=== PATIENT | male | born 1945 | race Caucasian/White ===

== ENCOUNTER → 2018-01-05 | Outpatient (CLI) | payer OTHER ==
[~2018-01-05] MED LIST: AMLO1CAP12 PO; CARB1TAB20 PO; CARB1TAB43 PO; LORA1TAB PO; METO50TA82 PO; SERT50TA5 PO; SIMV20TA3 PO; ZONI100C2 PO
== END | disposition home or self-care (01) ==
LOC: CFH 13:14
PROVIDERS: ATTEND Internal Medicine Cardiovascular Disease
DX: I07.1 Rheumatic tricuspid insufficiency (principal); I25.10 Atherosclerotic heart disease of native coronary artery without angina pectoris; I10 Essential (primary) hypertension; E78.5 Hyperlipidemia, unspecified
CPT/HCPCS: 93306

== ENCOUNTER 2019-03-15 10:46 | Outpatient (CLI) | payer MEDICARE ==
[~2019-03-15 10:46] MED LIST changes: -AMLO1CAP12 PO; +AMLO1CAP13 PO; +SERT50TA28 PO; -SERT50TA5 PO; +SIMV20TA19 PO; -SIMV20TA3 PO; -ZONI100C2 PO; +ZONI100C29 PO
== END 2019-03-15 23:59 | disposition home or self-care (01) ==
LOC: CVU 10:46
PROVIDERS: ATTEND Internal Medicine Cardiovascular Disease
DX: I65.23 Occlusion and stenosis of bilateral carotid arteries (principal); I25.10 Atherosclerotic heart disease of native coronary artery without angina pectoris; I10 Essential (primary) hypertension; E78.5 Hyperlipidemia, unspecified
CPT/HCPCS: 93880